=== PATIENT | female | born 1995 | race Caucasian/White ===

== ENCOUNTER → 2019-04-11 | Outpatient (CLI) | payer BC ==
--- NOTE | 2019-04-11 17:09 | Diagnostic Imaging Report ---
INDICATION: Left upper quadrant pain. FINDINGS: The spleen is normal in size at 8.1 x 3.6 x 4.1 cm. No splenic mass is identified. No perisplenic fluid collection is seen. Visualized images of the left kidney are unremarkable. No calculi or hydronephrosis is seen. IMPRESSION: Unremarkable left upper quadrant ultrasound. Dictated by: Dictated on workstation # [id number]
== END ==
LOC: RAD 16:31
PROVIDERS: ATTEND Nurse Practitioner Family
DX: N39.0 Urinary tract infection, site not specified (principal); F41.1 Generalized anxiety disorder; M79.10 Myalgia, unspecified site; R10.12 Left upper quadrant pain
CPT/HCPCS: 76705